=== PATIENT | male | born 1965 | race Caucasian/White ===

== ENCOUNTER 2021-06-30 08:23 | Outpatient (REF) | payer OTHER, SELFPAY ==
[2021-06-30 09:40] LABS: Binax Internal Control QC Valid; Binax Now Covid-19 Ag Negative (Negative)
[2021-06-30 09:41] LABS: Binax Lot number: 9864
== END 2021-06-30 08:24 | disposition home or self-care (01) ==
LOC: HO.LAB 08:23
PROVIDERS: Visit Provider Internal Medicine
DX: Z20.822 Contact with and (suspected) exposure to COVID-19 (principal)
CPT/HCPCS: C9803

== ENCOUNTER 2023-01-14 13:38 | Outpatient (AMB) | payer BC, SELFPAY ==
[2023-01-14 13:40] VITALS: BP 122/88; PULSE 60; O2SAT 99; BMI 27.1
--- NOTE | 2023-01-14 13:40 | A.OFFPC_ITS ---
Vital Signs 01/14/23 13:40 Height 5 ft 11 in Weight 194 lb BMI 27.1 BP 122/88 Blood Pressure Location Lt brachial Position Sitting Pulse 60 Pulse Source Pulse Oximeter Temp Source Skin Pulse Oximetry (%) 99 Oxygen Delivery Method Room Air Intake Visit Reasons: APPLICATION INTEGRATION ARCHITECT-Requesting Physical Exam Cost Recorder Required: No Allergies No Known Allergies Allergy (Verified 01/14/23 13:44) Medication List - Last Reconciled 01/14/23 by Pippa Parker MD multivitamin 1 tab PO DAILY Tobacco use date assessed: 01/14/23 Dental Screening Dental Screen Date: 01/14/23 Did you have a dental visit in the last 12 months?: Yes Did you have a dental problem in the last 6 months where you did not have access to dental care?: No Was dental information given to patient?: Patient has dentist HPI APPLICATION INTEGRATION ARCHITECT-Requesting Physical Exam HPI Details 57 year old overweight male seen for the 1st time. PFSH Surgical History (Updated 01/14/23 @ 13:58 by Pippa Parker MD) Finger amputation, no complication H/O right knee surgery Family History (Updated 01/14/23 @ 13:59 by Pippa Parker MD) Mother Uterine cancer Social History (Updated 01/14/23 @ 13:59 by Pippa Parker MD) Housing: House Alcohol intake: current Patient Tobacco Use Status: Never used Tobacco service: No Current occupational status: employed Cognitive needs: No Hearing needs: No Vision needs: No Questionnaire PHQ-9 Over the last 2 weeks, how often have you been bothered by any of the following problems? 1. Little interest or pleasure in doing things: not at all 2. Feeling down, depressed, or hopeless: not at all 3. Trouble falling or staying asleep, or sleeping too much: not at all 4. Feeling tired or having little energy: not at all 5. Poor appetite or overeating: not at all 6. Feeling bad about yourself - or that you are a failure or have let yourself or your family down: not at all 7. Trouble concentrating on things, such as reading the newspaper or watching television: not at all 8. Moving or speaking so slowly that other people could have noticed. Or the opposite - being so fidgety or restless that you have been moving around a lot more than usual: not at all 9. Thoughts that you would be better off or of hurting yourself in some way: not at all Total score: 0 Depression Screening Interpretation: Negative Source: Developed by Drs. Ellis Cobos, Doris Lainez, Vin García and colleagues, with an educational nisha from [employer]. Thrive Questionnaire Date Thrive assessed: 01/14/23 I am a: Patient What is your living situation today?: I have a steady place to live Within the past 12 months, did the food you bought not last and you didn't have the money to get more?: Never true Within the past 12 months, did you worry whether your food would run out before you got money to buy more?: Never true Do you have trouble paying for medicines?: No Do you have trouble getting transportation to medical appointments?: No Do you have trouble paying your heating and electricity bill?: No Do you have trouble taking care of your child, family member or friend?: No Do you have trouble with day-to-day activities such as bathing, preparing meals, shopping, managing finances, etc.?: No Are you currently unemployed and looking for a job?: No Are you interested in more education?: No AUDIT C Alcohol Use Questionnaire (AUDIT-C) 1. How often do you have a drink containing alcohol?: 2-3 times a week 2. How many drinks containing alcohol do you have on a typical day when you are drinking?: 1 or 2 3. How often do you have six or more drinks on one occasion?: Never Total Score: 3 GÉNESIS-7 AMB Questionnaire GÉNESIS-7 Date GÉNESIS - 7 assessed: 01/14/23 Feeling nervous, anxious, or on edge: 0 = Not at all Not being able to stop or control worryin = Not at all Worrying too much about different things: 0 = Not at all Trouble relaxin = Not at all Being so restless that it is hard to sit still: 0 = Not at all Becoming easily annoyed or irritable: 0 = Not at all Feeling afraid as if something awful might happen: 0 = Not at all Total GÉNESIS-7 score (0-4 normal; 5-9 mild; 10-14 moderate; 15-21 severe): 0 Source: Developed by Drs. Ellis Cobos, Doris Lainez, Vin García and colleagues, with an educational nisha from [employer]. Review of Systems Const Denies poor appetite and Denies weakness Eyes Denies no additional complaints ENT Reports Normal hearing present Card Denies chest pain, Denies syncope, Denies rapid heart rate and Denies dyspnea Resp Denies cough and Denies dyspnea GI Denies change in stool character, Reports constipation, Denies diarrhea, Denies nausea and Denies vomiting Denies dysuria and Denies urinary frequency Neuro Reports Normal hearing present, Denies confusion, Denies syncope and Denies weakness Psych Denies confusion Physical exam (Primary Care) Vital Signs: Last Vital Signs Pulse 60 01/14/23 13:40 BP 122/88 01/14/23 13:40 Pulse Ox 99 01/14/23 13:40 Oxygen Delivery Method Room Air 01/14/23 13:40 BMI result Body Mass Index 27.1 Tobacco/Smoking Status: Tobacco use Status Tobacco use date assessed 01/14/23 01/14/23 13:41 Patient Tobacco Use Status Never used Tobacco 01/14/23 13:41 PHQ-9: PHQ-9 Score PHQ-9: Total score 0 01/14/23 13:41 Depression Screening Interpretation: Negative Thrive Assessment: Date of Thrive Assessment Date Thrive assessed 01/14/23 01/14/23 13:41 Const General: alert and awake; No confusion Orientation/consciousness: No confusion HENMT Head: Yes normocephalic Ears: external ears normal and TM's normal bilaterally Face and sinus: Yes normal facial exam Mouth: moist mucous membranes Throat: Yes tonsils normal Eyes Conjunctivae: conjunctivae normal Pupils: Equal, round and reactive pupils present and Pupil accommodation reflex normal Direct Ophthalmoscopy: normal light reflex Neck Neck: No lymphadenopathy Thyroid: Thyroid normal Chest Chest palpation & inspection: normal inspection of the chest Resp Effort & Inspection: normal respiratory effort and no audible wheezes Auscultation: clear to auscultation bilaterally, no crackles, no wheezes and lung sounds not diminished Cardio Rate: regular rate Rhythm: regular rhythm Peripheral pulses: radial pulses present and dorsalis pedis present GI Other: stools negative for guaiac prostate normal Palpation (GI): no masses Auscultation: normal bowel sounds and normoactive bowel sounds Male General Exam: Yes normal external exam Back/Spine/Pelvis Other: left upper back 1 cm skin tag with the base of 5 mm Skin General skin exam: no rashes or lesions noted Rashes: no rashes Neuro General: deep tendon reflexes 2+ bilaterally and No confusion Cranial nerves: Yes Equal, round and reactive pupils present, Yes Midline tongue present, Yes Normal hearing present and Yes Ability to bilaterally elevate shoulders present Cognition (Neuro): normal cognition Gait exam (Neuro): Normal gait present Motor exam (neuro): 5/5 motor strength present throughout Deep tendon reflexes (DTR's): Right brachioradialis reflex intensity grade: 2+, Left brachioradialis reflex intensity grade: 2+, Right patellar reflex intensity grade: 2+ and Left patellar reflex intensity grade: 2+ Extrem General: No edema Assessment and Plan Assessment & Plan (1) Annual physical exam: Code(s): Z00.00 - Encounter for general adult medical examination without abnormal findings (2) Overweight (BMI 25.0-29.9): Code(s): E66.3 - Overweight Plan: diet and exercise (3) Colon cancer screening: Code(s): Z12.11 - Encounter for screening for malignant neoplasm of colon (4) Skin tag: Comment: Right upper back 1 cm polypoid Code(s): L91.8 - Other hypertrophic disorders of the skin (5) Erectile dysfunction: Code(s): N52.9 - Male erectile dysfunction, unspecified Orders: Orders Vitamin B12 and Folate Today E66.3 - Overweight Comprehensive Met. Panel Today E66.3 - Overweight Lipid Panel Today E66.3 - Overweight, E78.00 - Pure hypercholesterolemia, unspecified Prostate Specific Antigen Scr Today E66.3 - Overweight Free T4 (Free Thyroxine) Today E66.3 - Overweight Thyroid Stimulating Hormone Today E66.3 - Overweight Complete Blood Count Auto Diff Today E66.3 - Overweight Follicle Stimulating Hormone Today N52.9 - Male erectile dysfunction, unspecified Lutenizing Hormone Today N52.9 - Male erectile dysfunction, unspecified Prolactin Today N52.9 - Male erectile dysfunction, unspecified Testosterone, Total Today N52.9 - Male erectile dysfunction, unspecified Referrals Gastroenterology Referral Z12.11 - Encounter for screening for malignant neoplasm of colon Dermatology Referral L91.8 - Other hypertrophic disorders of the skin Medications: New sildenafil administer 30 minutes to 4 hours before activity 50 mg PO DAILY PRN 10 tabs 3RF sexual activity N52.9 - Male erectile dysfunction, unspecified Coding Level of Care Code New Pt Prev Care 40-64y(36336) Diagnoses Annual physical exam Z00.00 Overweight (BMI 25.0-29.9) E66.3 Colon cancer screening Z12.11 Skin tag L91.8 Erectile dysfunction N52.9
== END 2023-01-14 14:24 | disposition home or self-care (01) ==
PROVIDERS: PCP Family Medicine; Visit Provider Internal Medicine
DX: Z00.00 Encounter for general adult medical examination without abnormal findings (principal); E66.3 Overweight; Z12.11 Encounter for screening for malignant neoplasm of colon; L91.8 Other hypertrophic disorders of the skin; N52.9 Male erectile dysfunction, unspecified
CPT/HCPCS: 99386

== ENCOUNTER 2023-01-16 06:58 | Outpatient (REF) | payer BC, SELFPAY ==
[2023-01-16 07:11] LABS: MANUAL DIFF FLAG NO
[2023-01-16 08:14] LABS: Basophils Percent Auto 0.7 % (0-2); Eosinophils Absolute Auto 0.1 X10*3/uL (0.0-0.4); Hematocrit 42.9 % (42.0-52.0); Hemoglobin 14.2 g/dl (14.0-18.0); Imm Gran Abs Auto 0.01 X10*3/uL (0.00-0.03); Imm Gran Pct Auto 0.2 % (0.0-0.4); Lymphocytes Absolute Auto 1.4 X10*3/uL (1.2-4.9); Lymphocytes Percent Auto 31.1 % (20-40); Mean Corpuscular HGB Conc 33.1 g/dl (31.0-36.0); Mean Corpuscular Hemoglobin 28.2 pg (27.0-33.0); Mean Corpuscular Volume 85.1 fL (80.0-98.0); Mean Platelet Volume 11.6 fL (9.4-12.4); Monocytes Absolute Auto 0.4 X10*3/uL (0.1-1.2); Monocytes Percent Auto 9.2 % (2-11); Neutrophils Absolute Auto 2.5 x10*3/uL (2.0-8.3); Neutrophils Percent Auto 56.8 % (45-73); Platelet Count 171 X10*3/uL (160-400); Red Blood Count 5.04 X10*6/uL (4.60-5.80); Red Cell Distribution Width 13.5 % (11.0-16.0); White Blood Count 4.5 X10*3/uL (4.8-10.8)
[2023-01-16 08:49] LABS: Alanine Aminotransferase 23 U/L (0-40); Albumin Level 4.1 g/dL (3.5-5.0); Alkaline Phosphatase 58 U/L (39-117); Anion Gap 14 (12-20); Aspartate Amino Transferase 18 U/L (5-37); Bilirubin Total 0.8 mg/dL (0.0-1.0); Blood Urea Nitrogen 16 mg/dL (9-16); Calcium 9.3 mg/dL (8.4-10.2); Carbon Dioxide 26 mmol/L (22-29); Chloride 109 mmol/L (96-108); Cholesterol 195 mg/dL; Estimated Glomerular Filt Rate > 60; Glucose Random 95 mg/dL (60-115); HDL Cholesterol 47 mg/dL; LDL Cholesterol Calculated 131 mg/dl; Sodium 145 mmol/L (135-145); Total Protein 7.1 g/dL (6.5-8.0); Triglycerides 85 mg/dL
[2023-01-16 09:06] LABS: Free T4 (Free Thyroxine) 1.07 ng/dL (0.71-1.85); Thyroid Stimulating Hormone 1.65 uIU/mL (0.32-4.0)
[2023-01-16 09:25] LABS: Folate 12.5 ng/mL (> or = 4.0); Prostate Specific Antigen Scr 1.13 ng/mL (<0.05-4.0)
[2023-01-16 09:31] LABS: Vitamin B12 311 pg/mL (200-900)
[2023-01-18 01:23] LABS: Follicle Stimulating Hormone 9.5 mIU/mL (1.6-8.0); Lutenizing Hormone 3.6 mIU/mL (1.5-9.3); Prolactin 17.1 ng/mL (2.0-18.0)
[2023-01-22 10:18] LABS: Testosterone, Total 390 ng/dL (250-1100)
== END 2023-01-16 06:59 | disposition home or self-care (01) ==
LOC: HO.LAB 06:58
PROVIDERS: PCP Internal Medicine; Visit Provider Internal Medicine
DX: Z12.5 Encounter for screening for malignant neoplasm of prostate (principal); E66.3 Overweight; N52.9 Male erectile dysfunction, unspecified; E78.00 Pure hypercholesterolemia, unspecified
CPT/HCPCS: 36415; 80053; 80061; 82607; 82746; 83001; 83002; 84146; 84153; 84403; 84439; 84443; 85025

== ENCOUNTER 2023-04-25 12:52 | Outpatient (AMB) | payer BC, SELFPAY ==
[2023-04-25 12:58] VITALS: BP 128/68; PULSE 72; O2SAT 98; BMI 27.9
--- NOTE | 2023-04-25 12:58 | MHC.PC.OV ---
Vital Signs 04/25/23 12:58 Height 5 ft 11 in Weight 200 lb BMI 27.9 BP 128/68 Blood Pressure Location Lt brachial Position Sitting Pulse 72 Pulse Source Pulse Oximeter Pulse Oximetry (%) 98 Oxygen Delivery Method Room Air Intake Visit Reasons: 3 month f/u Allergies No Known Allergies Allergy (Verified 04/25/23 12:59) Medication List - Last Reconciled 04/25/23 by Pippa Parker MD multivitamin 1 tab PO DAILY sildenafil 100 mg PO DAILY PRN Tobacco use date assessed: 01/14/23 Dental Screening Dental Screen Date: 04/25/23 Did you have a dental visit in the last 12 months?: Yes Did you have a dental problem in the last 6 months where you did not have access to dental care?: No Was dental information given to patient?: Patient has dentist HPI 3 month f/u HPI Details 58-year-old overweight male with a history of erectile dysfunction last seen in December 2022. Patient is here for follow-up. Patient was referred to Gastroenterology but I do not see notes. Blood work done.wakes up with a headached , tired alot, withessed apnea sleeps on watching tv, occ sleepy after a meal , no nap time, , sleepy on long distance passenger, driving no problem PFSH Surgical History (Updated 01/14/23 @ 13:58 by Pippa Parker MD) H/O right knee surgery Finger amputation, no complication Family History (Updated 04/25/23 @ 13:00 by Halina Grant TIME CLERK) Mother Uterine cancer Social History (Updated 01/14/23 @ 13:59 by Pippa Parker MD) Housing: House Alcohol intake: current Patient Tobacco Use Status: Never used Tobacco e-Cigarette/Vaping Use: Never Used Second Hand Smoke Exposure: No service: No Current occupational status: employed Cognitive needs: No Hearing needs: No Vision needs: Yes Questionnaire PHQ-9 Over the last 2 weeks, how often have you been bothered by any of the following problems? 1. Little interest or pleasure in doing things: not at all 2. Feeling down, depressed, or hopeless: not at all 3. Trouble falling or staying asleep, or sleeping too much: not at all 4. Feeling tired or having little energy: not at all 5. Poor appetite or overeating: not at all 6. Feeling bad about yourself - or that you are a failure or have let yourself or your family down: not at all 7. Trouble concentrating on things, such as reading the newspaper or watching television: not at all 8. Moving or speaking so slowly that other people could have noticed. Or the opposite - being so fidgety or restless that you have been moving around a lot more than usual: not at all 9. Thoughts that you would be better off or of hurting yourself in some way: not at all Total score: 0 Depression Screening Interpretation: Negative Depression Screening Done: Yes Source: Developed by Drs. Ellis Cobos, Doris Lainez, Vin García and colleagues, with an educational nisha from [employer]. Thrive Questionnaire Date Thrive assessed: 01/14/23 AUDIT C Alcohol Use Questionnaire (AUDIT-C) 1. How often do you have a drink containing alcohol?: 2-3 times a week 2. How many drinks containing alcohol do you have on a typical day when you are drinking?: 1 or 2 3. How often do you have six or more drinks on one occasion?: Never Total Score: 3 GÉNESIS-7 AMB Questionnaire GÉNESIS-7 Date GÉNESIS - 7 assessed: 01/14/23 Source: Developed by Drs. Ellis Cobos, Doris Lainez, Vin García and colleagues, with an educational nisha from [employer]. Physical exam (Primary Care) Vital Signs: Last Vital Signs Pulse 72 04/25/23 12:58 BP 128/68 04/25/23 12:58 Pulse Ox 98 04/25/23 12:58 Oxygen Delivery Method Room Air 04/25/23 12:58 BMI result Body Mass Index 27.9 Tobacco/Smoking Status: Tobacco use Status Tobacco use date assessed 01/14/23 04/25/23 13:04 Patient Tobacco Use Status Never used Tobacco 04/25/23 13:04 e-Cigarette/Vaping Use Never Used 04/25/23 13:04 PHQ-9: PHQ-9 Score PHQ-9: Total score 0 04/25/23 13:04 Depression Screening Interpretation: Negative Thrive Assessment: Date of Thrive Assessment Date Thrive assessed 01/14/23 04/25/23 13:04 Const General: alert; No acute distress Eyes Conjunctivae: conjunctivae normal Resp Auscultation: clear to auscultation bilaterally Cardio Rate: regular rate Rhythm: regular rhythm GI Inspection: Yes normal to inspection Extrem General: Yes normal to inspection and No edema Assessment and Plan Assessment & Plan (1) Overweight (BMI 25.0-29.9): Code(s): E66.3 - Overweight Plan: Diet and exercise (2) Colon cancer screening: Code(s): Z12.11 - Encounter for screening for malignant neoplasm of colon Plan: Reminded about colon cancer screening (3) Erectile dysfunction: Code(s): N52.9 - Male erectile dysfunction, unspecified Plan: Continue with medication as needed (4) Hypercholesterolemia: Code(s): E78.00 - Pure hypercholesterolemia, unspecified Plan: Avoid fried foods, chicken skin, eggs, butter margarine, pastries and meat. Be it pork or beef they have a lot of cholesterol (5) Witnessed apneic spells: Code(s): R06.81 - Apnea, not elsewhere classified Orders: Orders RT home sleep study Today R06.81 - Apnea, not elsewhere classified Medications: Changed From sildenafil administer 30 minutes to 4 hours before activity 50 mg PO DAILY PRN 10 tabs 3RF sexual activity N52.9 - Male erectile dysfunction, unspecified To sildenafil administer 30 minutes to 4 hours before activity 100 mg PO DAILY PRN 14 tabs 3RF sexual activity N52.9 - Male erectile dysfunction, unspecified Coding Level of Care Code Est Pt Level 4 (56058) Diagnoses Overweight (BMI 25.0-29.9) E66.3 Colon cancer screening Z12.11 Erectile dysfunction N52.9 Hypercholesterolemia E78.00 Witnessed apneic spells R06.81
== END 2023-04-25 13:38 | disposition home or self-care (01) ==
PROVIDERS: PCP Family Medicine; Visit Provider Internal Medicine
DX: E66.3 Overweight (principal); Z12.11 Encounter for screening for malignant neoplasm of colon; N52.9 Male erectile dysfunction, unspecified; E78.00 Pure hypercholesterolemia, unspecified; R06.81 Apnea, not elsewhere classified
CPT/HCPCS: 99214

== ENCOUNTER 2023-06-06 09:28 | Outpatient (AMB) | payer BC, SELFPAY ==
--- NOTE | 2023-06-06 09:30 | MHC.OFFVIS ---
Intake Vital Signs 06/06/23 09:32 Height 5 ft 11 in Weight 196 lb 3.382 oz BMI 27.4 BP 139/77 Blood Pressure Location Lt brachial Position Sitting Pulse 82 Intake Visit Reasons: Colonoscopy Screening Intake Note: Milo presents in the office as a colonoscopy screening. CC: He states that he is not having any concerns. Construction Administrative Assistant Required: No Allergies No Known Allergies Allergy (Verified 06/06/23 09:32) Medication List - Last Reconciled 06/06/23 by Zarina Gunn PA-C multivitamin 1 tab PO DAILY sildenafil 100 mg PO DAILY PRN HPI HPI Comments History of Present Illness Details A 58 y/o male referred for index screening colonoscopy he has no GI complaints, he has no known family history of GI cancer He would like to discuss alternatives to the standard colonoscopy Appetite is good Bowels good No respiratory/ cardiac issue PFSH Surgical History H/O right knee surgery Finger amputation, no complication Family History Mother Uterine cancer Social History Housing: House Alcohol intake: current Patient Tobacco Use Status: Never used Tobacco e-Cigarette/Vaping Use: Never Used Second Hand Smoke Exposure: No service: No Current occupational status: employed Cognitive needs: No Hearing needs: No Vision needs: Yes Review of Systems Const Details: All systems reviewed and are negative All systems reviewed & are unremarkable except as noted in HPI and below Card Denies chest pain and Denies dyspnea Resp Denies dyspnea GI Denies abdominal pain, Denies heartburn, Denies diarrhea, Denies nausea and Denies vomiting Physical Exam Vital Signs: Last Vital Signs Pulse 82 06/06/23 09:32 BP 139/77 06/06/23 09:32 BMI result Body Mass Index 27.4 Const General: cooperative, healthy appearing, comfortable and no acute distress Orientation/consciousness: patient oriented x3 Limitations: no limitations Eyes Sclerae: sclerae normal Resp Effort & Inspection: normal respiratory effort and able to speak in complete sentences Auscultation: clear to auscultation bilaterally, no crackles, no rales and no rhonchi Cardio Rate: regular rate Rhythm: regular rhythm Heart sounds: S1 normal heart sound present and S2 normal heart sound present GI Palpation (GI): Soft to palpation and nontender Auscultation: normal bowel sounds Skin General skin exam: no rashes or lesions noted Neuro General: patient oriented x3 Extrem General: Yes full ROM Psych Appearance: grossly normal and well kempt Mental Status: mental status grossly normal Speech and movement: Normal speech and movement present Affect: normal affect Attitude: cooperative Thought process: Normal thought process present Thought content: Normal thought content present Assessment & Plan Assessment & Plan (1) Colon cancer screening: Comment: Discussed alternative standard colonoscopy Code(s): Z12.11 - Encounter for screening for malignant neoplasm of colon Plan: Cologuard Plan cologuard- if positive - colonoscopy Patient Instructions: Very pleasant 58-year-old Gent referred for index screening colonoscopy no GI general complaints. No family history of GI cancers. We discussed colonoscopy as well as alternatives to include Cologuard, approximately 13% follows positives as well as there are false negatives. He prefers to go forward with Cologuard, he is fully aware if this is positive we would recommend colonoscopy. We could schedule procedure without him coming back into the office. Authorization will be sent to his insurance, he will call us 2 weeks after submitting sample for results. She had he reconsider he may call let us know. Appreciate the opportunity assist in the care this cindy Aviles Coding Level of Care Code New Pt Level 3 (24431) Diagnoses Colon cancer screening Z12.11 Time Spent (min) 30
[2023-06-06 09:32] VITALS: BP 139/77; PULSE 82; BMI 27.4
== END 2023-06-06 12:25 | disposition home or self-care (01) ==
PROVIDERS: PCP Internal Medicine; Visit Provider Physician Assistant
DX: Z01.818 Encounter for other preprocedural examination (principal); Z12.11 Encounter for screening for malignant neoplasm of colon
CPT/HCPCS: S0285

== ENCOUNTER → 2023-06-06 09:28 | Outpatient (BNVA) | payer BC, SELFPAY | PROVIDERS: PCP Internal Medicine; Visit Provider Physician Assistant ==

== ENCOUNTER → 2023-09-25 15:27 | Outpatient (REF) | payer OTHER, SELFPAY | LOC: HO.SL 15:27 | PROVIDERS: PCP Internal Medicine; Visit Provider Internal Medicine | DX: G47.33 Obstructive sleep apnea (adult) (pediatric) (principal) | CPT/HCPCS: 95806 ==

== ENCOUNTER → 2023-09-25 15:50 | Outpatient (BNV) | payer OTHER, SELFPAY | PROVIDERS: PCP Internal Medicine; Visit Provider Internal Medicine | DX: G47.33 Obstructive sleep apnea (adult) (pediatric) (principal) | CPT/HCPCS: 95806 ==

== ENCOUNTER 2024-03-31 15:51 | Outpatient (AMB) | payer OTHER, SELFPAY ==
--- NOTE | 2024-03-31 15:56 | MHC.PC.OV ---
Vital Signs 03/31/24 15:57 03/31/24 16:35 Height 5 ft 11 in Weight 199 lb BMI 27.8 BP 140/88 H 140/88 H Blood Pressure Location Lt brachial Lt brachial Position Sitting Sitting Pulse 59 Pulse Source Pulse Oximeter Pulse Oximetry (%) 97 Oxygen Delivery Method Room Air Intake Visit Reasons: annual exam Intake Note: Patient is here today for a physical. Long Term Care Social Worker Required: No Allergies No Known Allergies Allergy (Verified 03/31/24 16:14) Medication List - Last Reconciled 03/31/24 by Rupinder Gan PA-C [AUTOPAP 6-20 cm H20 humidified AIR As directed] multivitamin 1 tab PO DAILY sildenafil 100 mg PO DAILY PRN Tobacco use date assessed: 03/31/24 Dental Screening Dental Screen Date: 03/31/24 Did you have a dental visit in the last 12 months?: Yes Did you have a dental problem in the last 6 months where you did not have access to dental care?: No Was dental information given to patient?: Patient has dentist HPI annual exam HPI Details 58-year-old overweight male with history of erectile dysfunction last seen April 2023 coming in for annual exam. In review of the notes, patient had home sleep study completed September 2023 found to have severe obstructive sleep apnea and recommend CPAP therapy. Patient states he is using the mask however it is difficult to use at night. He finds that he wakes up more while using the mask than without using the mass. He is up-to-date on all vaccinations. He had the Cologuard test mailed to his house last year however did not complete it. He has no other concerns today. [facility] Surgical History H/O right knee surgery Finger amputation, no complication Family History Mother Uterine cancer Social History Housing: House Alcohol intake: current Patient Tobacco Use Status: Never used Tobacco e-Cigarette/Vaping Use: Never Used Second Hand Smoke Exposure: No service: No Current occupational status: employed Cognitive needs: No Hearing needs: No Vision needs: Yes Questionnaire PHQ-9 Over the last 2 weeks, how often have you been bothered by any of the following problems? 1. Little interest or pleasure in doing things: not at all 2. Feeling down, depressed, or hopeless: not at all 3. Trouble falling or staying asleep, or sleeping too much: several days 4. Feeling tired or having little energy: several days 5. Poor appetite or overeating: not at all 6. Feeling bad about yourself - or that you are a failure or have let yourself or your family down: not at all 7. Trouble concentrating on things, such as reading the newspaper or watching television: not at all 8. Moving or speaking so slowly that other people could have noticed. Or the opposite - being so fidgety or restless that you have been moving around a lot more than usual: not at all 9. Thoughts that you would be better off or of hurting yourself in some way: not at all Total score: 2 Depression Screening Interpretation: Negative Depression Screening Done: Yes 18550 - PHQ-9 Billing: Yes Source: Developed by Drs. Ellis Cobos, Doris Lainez, Vin García and colleagues, with an educational nisha from [employer]. Thrive Questionnaire Date Thrive assessed: 03/30/24 I am a: Patient What is your living situation today?: I have a steady place to live Within the past 12 months, did the food you bought not last and you didn't have the money to get more?: Never true Within the past 12 months, did you worry whether your food would run out before you got money to buy more?: Never true Do you have trouble paying for medicines?: No Do you have trouble getting transportation to medical appointments?: No Do you have trouble paying your heating and electricity bill?: No Do you have trouble taking care of your child, family member or friend?: No Do you have trouble with day-to-day activities such as bathing, preparing meals, shopping, managing finances, etc.?: No Are you currently unemployed and looking for a job?: No Are you interested in more education?: No Please select the resources that you would like help with: None Currently or been in a relationship where the following occur: No concerns reported THRIVE Score: 0 AUDIT C Alcohol Use Questionnaire (AUDIT-C) 1. How often do you have a drink containing alcohol?: 2-4 times a month 2. How many drinks containing alcohol do you have on a typical day when you are drinking?: 1 or 2 3. How often do you have six or more drinks on one occasion?: Never Total Score: 2 GÉNESIS-7 AMB Questionnaire GÉNESIS-7 Date GÉNESIS - 7 assessed: 03/31/24 Feeling nervous, anxious, or on edge: 0 = Not at all Not being able to stop or control worryin = Not at all Worrying too much about different things: 0 = Not at all Trouble relaxin = Not at all Being so restless that it is hard to sit still: 0 = Not at all Becoming easily annoyed or irritable: 0 = Not at all Feeling afraid as if something awful might happen: 0 = Not at all Total GÉNESIS-7 score (0-4 normal; 5-9 mild; 10-14 moderate; 15-21 severe): 0 Source: Developed by Drs. Ellis Cobos, Doris Lainez, Vin García and colleagues, with an educational nisha from [employer]. Review of Systems Const Denies body aches, Denies fatigue, Denies fever(s), Denies frequent falls, Denies headache(s) and Denies weakness Eyes Reports no additional complaints and Denies change in vision ENT Denies dysphagia, Denies dizziness, Denies facial pain, Denies headache(s), Denies nasal congestion and Denies odynophagia Card Denies chest pain, Denies syncope, Denies irregular heart rhythm, Denies leg edema, Denies lightheadedness and Denies dyspnea Resp Denies cough and Denies dyspnea GI Denies constipation, Denies dysphagia, Denies dyspepsia, Denies diarrhea, Denies nausea, Denies odynophagia and Denies vomiting Denies dysuria, Denies urinary frequency, Denies urinary hesitancy and Denies urinary urgency Musc Denies back pain and Denies myalgias Skin/Breast Reports system reviewed and no additional complaints, except as documented Neuro Denies dizziness, Denies syncope, Denies frequent falls, Denies headache(s) and Denies weakness Psych Reports no additional complaints Endo Denies fatigue Physical exam (Primary Care) Vital Signs: Last Vital Signs Pulse 59 03/31/24 15:57 Pulse Ox 97 03/31/24 15:57 Oxygen Delivery Method Room Air 03/31/24 15:57 BMI result Body Mass Index 27.8 Tobacco/Smoking Status: Tobacco use Status Tobacco use date assessed 03/31/24 03/31/24 15:58 Patient Tobacco Use Status Never used Tobacco 03/31/24 15:57 e-Cigarette/Vaping Use Never Used 03/31/24 15:57 PHQ-9: PHQ-9 Score PHQ-9: Total score 2 03/31/24 16:07 Depression Screening Interpretation: Negative Thrive Assessment: Date of Thrive Assessment Date Thrive assessed 03/30/24 03/31/24 15:57 Currently or been in a relationship where the following occur: No concerns reported Const General: cooperative, healthy appearing, comfortable and no acute distress Orientation/consciousness: patient oriented x3 HENMT Head: Yes normocephalic Ears: hearing grossly normal bilaterally, external ears normal, TM's normal bilaterally and EAC's normal General nose exam: Normal external nose present Face and sinus: Yes normal facial exam and Yes sinuses nontender Mouth: Normal oral and palatal mucosa present and tongue normal Throat: Yes posterior oropharynx normal Eyes General: appearance normal, both eyes and all related structures Conjunctivae: conjunctivae normal Pupils: Equal, round and reactive pupils present EOM: EOMs intact bilaterally and No Nystagmus present Neck Neck: Yes normal visual inspection, Yes full ROM and Yes no lymphadenopathy Chest Chest palpation & inspection: normal inspection of the chest Resp Effort & Inspection: normal respiratory effort Auscultation: clear to auscultation bilaterally, no crackles, no rales, no rhonchi, no wheezes and breath sounds present Cardio Rate: regular rate Rhythm: regular rhythm Peripheral pulses: radial pulses present and dorsalis pedis present GI Inspection: Yes normal to inspection and No Abdominal wall edema Palpation (GI): Soft to palpation, not firm and nontender Auscultation: normal bowel sounds Rectal Exam - Male: Yes deferred General: Yes no CVA tenderness Back/Spine/Pelvis Back: no CVA tenderness Skin General skin exam: no rashes or lesions noted Neuro General: patient oriented x3 Cranial nerves: Yes Equal, round and reactive pupils present, Yes Midline tongue present, Yes Ability to bilaterally elevate shoulders present and No Nystagmus present Gait exam (Neuro): Normal gait present Extrem General: Yes normal to inspection, Yes full ROM, No no pedal edema and No edema Psych Speech and movement: Normal speech and movement present Affect: normal affect Insight: Good insight present (Psych) Judgement: Good judgement present (Psych) Coding Level of Care Code Est Pt Prev Care 40-64y(07251) Diagnoses Severe obstructive sleep apnea G47.33 Hypercholesterolemia E78.00 Erectile dysfunction N52.9 Colon cancer screening Z12.11 Overweight (BMI 25.0-29.9) E66.3 Annual physical exam Z00.00 Assessment & Plan Assessment & Plan (1) Severe obstructive sleep apnea: Comment: Sleep study done 09/25/2023 showing severe obstructive sleep apnea with an AHI of 34 consider CPAP therapy auto PAP mode and pressure settings of 6-20 cm Code(s): G47.33 - Obstructive sleep apnea (adult) (pediatric) Category: Medical Plan: Uses CPAP faithfully at least 4 hours a night and benefits from this therapy. He does mentioned the mask is difficult for him to wear although he does wear it. He is requesting referral to Ear Nose and Throat for deviated septum and evaluation for possible surgery. Referral placed today. (2) Hypercholesterolemia: Code(s): E78.00 - Pure hypercholesterolemia, unspecified Category: Medical Plan: Avoid foods that are high in cholesterol such as red meat, fried foods, eggs and baked goods. Triglyceride goal of less than 150 and LDL goal of less than 130. Not currently on medical management. (3) Erectile dysfunction: Code(s): N52.9 - Male erectile dysfunction, unspecified Category: Medical Plan: Patient states the sildenafil has been working well for him but he does have occasions where it does not work. He is requesting to try the name brand Viagra which was sent to pharmacy. Discussed with patient this medication may not be covered by his insurance and offered alternative however this was declined. Follow up as needed. (4) Colon cancer screening: Comment: Discussed alternative standard colonoscopy Code(s): Z12.11 - Encounter for screening for malignant neoplasm of colon Category: Medical Plan: Referral placed for Cologuard testing. (5) Overweight (BMI 25.0-29.9): Code(s): E66.3 - Overweight Category: Medical Plan: Healthy diet and regular exercise is encouraged. (6) Annual physical exam: Code(s): Z00.00 - Encounter for general adult medical examination without abnormal findings Category: Medical Plan: Patient is up-to-date on all recommended vaccinations for his age. Referral placed for Cologuard testing and otherwise up-to-date with routine screening for his age. Updated blood work ordered. Follow up in 1 year or sooner pending blood work or if new problems arise. Plan This note was constructed using voice recognition software. While every effort has been made to ensure accuracy and web merchandiser, still areas may have been included sometimes these areas may affect the content or meeting of the given symptoms. Total time spent caring for the patient today was thirty minutes. This includes time spent before the visit reviewing the chart, time spent during the visit, and time spent after the visit and documentation. Orders: Orders Comprehensive Met. Panel Today Z00.00 - Encounter for general adult medical examination without abnormal findings Hemoglobin A1c Today Z00.00 - Encounter for general adult medical examination without abnormal findings TSH reflex Free T4 Today Z00.00 - Encounter for general adult medical examination without abnormal findings Vitamin B12 and Folate Today Z00.00 - Encounter for general adult medical examination without abnormal findings Complete Blood Count Auto Diff Today Z00.00 - Encounter for general adult medical examination without abnormal findings Free T4 (Free Thyroxine) Today Z00.00 - Encounter for general adult medical examination without abnormal findings Lipid Panel Today Z00.00 - Encounter for general adult medical examination without abnormal findings Vitamin D 25-OH (D2 and D3) Today Z00.00 - Encounter for general adult medical examination without abnormal findings PSA, Ultra Sensitive Today Z00.00 - Encounter for general adult medical examination without abnormal findings Referrals Cologuard Test Z12.11 - Encounter for screening for malignant neoplasm of colon, Z12.12 - Encounter for screening for malignant neoplasm of rectum Ear/Nose/Throat Referral G47.33 - Obstructive sleep apnea (adult) (pediatric), J34.2 - Deviated nasal septum Medications: New sildenafil (Viagra) administer 30 minutes to 4 hours before activity 100 mg PO DAILY PRN 14 tabs 0RF sexual activity On Hold sildenafil Hold Comment: Doctor's Order 100 mg PO DAILY PRN 14 tabs 3RF sexual activity N52.9 - Male erectile dysfunction, unspecified
[2024-03-31 15:57] VITALS: BP 140/88; PULSE 59; O2SAT 97; BMI 27.8
[2024-03-31 16:35] VITALS: BP 140/88
== END 2024-03-31 16:38 | disposition home or self-care (01) ==
PROVIDERS: PCP Internal Medicine
DX: G47.33 Obstructive sleep apnea (adult) (pediatric) (principal); E78.00 Pure hypercholesterolemia, unspecified; N52.9 Male erectile dysfunction, unspecified; Z12.11 Encounter for screening for malignant neoplasm of colon; E66.3 Overweight; Z00.00 Encounter for general adult medical examination without abnormal findings

== ENCOUNTER → 2024-03-31 15:51 | Outpatient (BNVA) | payer OTHER, SELFPAY | PROVIDERS: PCP Internal Medicine ==

== ENCOUNTER 2024-04-10 07:43 | Outpatient (REF) | payer OTHER, SELFPAY ==
[2024-04-10 08:02] LABS: MANUAL DIFF FLAG NO
[2024-04-10 08:20] LABS: Basophils Percent Auto 0.8 % (0-2); Eosinophils Absolute Auto 0.1 X10*3/uL (0.0-0.4); Eosinophils Percent Auto 2.7 % (0-4); Hematocrit 40.1 % (42.0-52.0); Hemoglobin 14.2 g/dl (14.0-18.0); Imm Gran Abs Auto 0.01 X10*3/uL (0.00-0.03); Imm Gran Pct Auto 0.3 % (0.0-0.4); Lymphocytes Absolute Auto 1.4 X10*3/uL (1.2-4.9); Lymphocytes Percent Auto 36.2 % (20-40); Mean Corpuscular HGB Conc 35.4 g/dl (31.0-36.0); Mean Platelet Volume 11.5 fL (9.4-12.4); Monocytes Absolute Auto 0.3 X10*3/uL (0.1-1.2); Platelet Count 169 X10*3/uL (160-400); Red Blood Count 4.89 X10*6/uL (4.60-5.80); Red Cell Distribution Width 13.9 % (11.0-16.0); White Blood Count 3.7 X10*3/uL (4.8-10.8)
[2024-04-10 08:31] LABS: Estimated Average Glucose 97 mg/dL; Hemoglobin A1C 110.3583 umol/L; Total Hemoglobin (HGBA1C) 3548.6741 umol/L
[2024-04-10 09:21] LABS: Alanine Aminotransferase 25 U/L (0-40); Alkaline Phosphatase 58 U/L (39-117); Anion Gap 11 (12-20); Aspartate Amino Transferase 22 U/L (5-37); Bilirubin Total 0.8 mg/dL (0.0-1.0); Blood Urea Nitrogen 12 mg/dL (9-16); Calcium 9.3 mg/dL (8.4-10.2); Carbon Dioxide 28 mmol/L (22-29); Chloride 107 mmol/L (96-108); Cholesterol 192 mg/dL (<200); Estimated Glomerular Filt Rate > 60; Glucose Random 97 mg/dL (60-115); HDL Cholesterol 44 mg/dL (>40); LDL Cholesterol Calculated 129 mg/dL (<100); Potassium 3.7 mmol/L (3.3-5.1); Sodium 142 mmol/L (135-145); Total Protein 6.8 g/dL (6.5-8.0); Triglycerides 95 mg/dL (<150)
[2024-04-10 09:23] LABS: Free T4 (Free Thyroxine) 0.95 ng/dL (0.71-1.85); TSH reflex Free T4 1.82 uIU/mL (0.32-4.0)
[2024-04-10 09:29] LABS: Vitamin B12 328 pg/mL (200-900)
[2024-04-16 15:08] LABS: Vitamin D 25-OH, D2 <4 ng/mL; Vitamin D 25-OH, D3 23 ng/mL; Vitamin D 25-OH, Total 23 ng/mL (30-100)
[2024-04-17 01:03] LABS: PSA, Ultra Sensitive 1.31 ng/mL
== END 2024-04-10 07:44 | disposition home or self-care (01) ==
LOC: HO.LAB 07:43
PROVIDERS: PCP Internal Medicine
DX: Z00.00 Encounter for general adult medical examination without abnormal findings (principal); Z12.5 Encounter for screening for malignant neoplasm of prostate; Z13.1 Encounter for screening for diabetes mellitus; Z13.89 Encounter for screening for other disorder
CPT/HCPCS: 36415; 80053; 80061; 82306; 82607; 82746; 83036; 84153; 84439; 84443; 85025

== ENCOUNTER 2024-10-19 09:25 | Outpatient (AMB) | payer OTHER, SELFPAY ==
[2024-10-19 09:28] VITALS: BP 128/82; PULSE 101; TEMP 37.1; O2SAT 97; BMI 27.6
--- NOTE | 2024-10-19 09:28 | MHC.PC.OV ---
Vital Signs 10/19/24 09:28 Height 5 ft 11 in Weight 198 lb BMI 27.6 BP 128/82 Blood Pressure Location Lt brachial Position Sitting Pulse 101 H Pulse Source Pulse Oximeter Temp 98.8 F Temp Source Oral Pulse Oximetry (%) 97 Oxygen Delivery Method Room Air Intake Visit Reasons: breathing issues Allergies No Known Allergies Allergy (Verified 10/19/24 09:29) Medication List - Last Reconciled 10/19/24 by Pippa Parker MD [AUTOPAP 6-20 cm H20 humidified AIR As directed] cholecalciferol (vitamin D3) 25 mcg PO DAILY multivitamin 1 tab PO DAILY tadalafil 20 mg PO Q OTHER DAY PRN Tobacco use date assessed: 10/19/24 Dental Screening Dental Screen Date: 10/19/24 Did you have a dental visit in the last 12 months?: No Did you have a dental problem in the last 6 months where you did not have access to dental care?: No Was dental information given to patient?: Patient has dentist HPI breathing issues HPI Details cough 1 week no fevers negative covid test , had sore throat, nasal congestion chest tightness, nobody sick at home [employer] Surgical History H/O right knee surgery Finger amputation, no complication Family History Mother Uterine cancer Social History Housing: House Alcohol intake: current Patient Tobacco Use Status: Never used Tobacco Tobacco use type: Cigarette e-Cigarette/Vaping Use: Never Used Second Hand Smoke Exposure: No service: No Current occupational status: employed Cognitive needs: No Hearing needs: No Vision needs: Yes Questionnaire PHQ-9 Over the last 2 weeks, how often have you been bothered by any of the following problems? 1. Little interest or pleasure in doing things: nearly every day 2. Feeling down, depressed, or hopeless: not at all 3. Trouble falling or staying asleep, or sleeping too much: several days 4. Feeling tired or having little energy: more than half the days 5. Poor appetite or overeating: several days 6. Feeling bad about yourself - or that you are a failure or have let yourself or your family down: not at all 7. Trouble concentrating on things, such as reading the newspaper or watching television: several days 8. Moving or speaking so slowly that other people could have noticed. Or the opposite - being so fidgety or restless that you have been moving around a lot more than usual: not at all 9. Thoughts that you would be better off or of hurting yourself in some way: not at all Total score: 8 Depression Screening Interpretation: Positive Depression Screening Done: Yes Source: Developed by Drs. Ellis Cobos, Doris Lainez, Vin García and colleagues, with an educational nisha from [employer]. Thrive Questionnaire Date Thrive assessed: 10/19/24 I am a: Patient What is your living situation today?: I have a steady place to live Within the past 12 months, did the food you bought not last and you didn't have the money to get more?: Never true Within the past 12 months, did you worry whether your food would run out before you got money to buy more?: Never true Do you have trouble paying for medicines?: No Do you have trouble getting transportation to medical appointments?: No Do you have trouble paying your heating and electricity bill?: No Do you have trouble taking care of your child, family member or friend?: No Do you have trouble with day-to-day activities such as bathing, preparing meals, shopping, managing finances, etc.?: No Are you currently unemployed and looking for a job?: No Are you interested in more education?: No Please select the resources that you would like help with: None Currently or been in a relationship where the following occur: I choose not to answer THRIVE Score: 0 AUDIT C Alcohol Use Questionnaire (AUDIT-C) 1. How often do you have a drink containing alcohol?: 2-4 times a month 2. How many drinks containing alcohol do you have on a typical day when you are drinking?: 1 or 2 3. How often do you have six or more drinks on one occasion?: Never Total Score: 2 GÉNESIS-7 AMB Questionnaire GÉNESIS-7 Date GÉNESIS - 7 assessed: 10/19/24 Feeling nervous, anxious, or on edge: 0 = Not at all Not being able to stop or control worryin = Not at all Worrying too much about different things: 0 = Not at all Trouble relaxin = Not at all Being so restless that it is hard to sit still: 0 = Not at all Becoming easily annoyed or irritable: 0 = Not at all Feeling afraid as if something awful might happen: 0 = Not at all Total GÉNESIS-7 score (0-4 normal; 5-9 mild; 10-14 moderate; 15-21 severe): 0 Source: Developed by Drs. Ellis Cobos, Doris Lainez, Vin García and colleagues, with an educational nisha from [employer]. Physical exam (Primary Care) Vital Signs: Last Vital Signs Temp 98.8 F 10/19/24 09:28 Pulse 101 H 10/19/24 09:28 BP 128/82 10/19/24 09:28 Pulse Ox 97 10/19/24 09:28 Oxygen Delivery Method Room Air 10/19/24 09:28 BMI result Body Mass Index 27.6 Tobacco/Smoking Status: Tobacco use Status Tobacco use date assessed 10/19/24 10/19/24 09:29 Patient Tobacco Use Status Never used Tobacco 10/19/24 09:29 Tobacco use type Cigarette 10/19/24 09:29 e-Cigarette/Vaping Use Never Used 10/19/24 09:29 PHQ-9: PHQ-9 Score PHQ-9: Total score 8 10/19/24 09:43 Depression Screening Interpretation: Positive Thrive Assessment: Date of Thrive Assessment Date Thrive assessed 10/19/24 10/19/24 09:33 Currently or been in a relationship where the following occur: I choose not to answer Const General: alert; No acute distress HENMT Other: Posterior pharyngeal wall mild redness Eyes Conjunctivae: conjunctivae normal Resp Other: Occasional wheezing and rhonchi no crackles noted Cardio Rate: regular rate Rhythm: regular rhythm GI Inspection: Yes normal to inspection Extrem General: Yes normal to inspection and No edema Coding Level of Care Code Est Pt Level 4 (94635) Diagnoses Severe obstructive sleep apnea G47.33 Overweight (BMI 25.0-29.9) E66.3 Acute bronchitis J20.9 Colon cancer screening Z12.11 Assessment & Plan Assessment & Plan (1) Severe obstructive sleep apnea: Comment: Sleep study done 09/25/2023 showing severe obstructive sleep apnea with an AHI of 34 consider CPAP therapy auto PAP mode and pressure settings of 6-20 cm Code(s): G47.33 - Obstructive sleep apnea (adult) (pediatric) Category: Medical Plan: Continue the with the CPAP more than 4 hours a night and benefits from the CPAP. Discussed with the patient the problem of sleep apnea and cardiac effects. Would recommend referral to sleep Medicine for further management. (2) Overweight (BMI 25.0-29.9): Code(s): E66.3 - Overweight Category: Medical Plan: Diet and exercise (3) Acute bronchitis: Code(s): J20.9 - Acute bronchitis, unspecified Category: Medical Plan: For the sore throat can take Cepacol lozenges, discussed about Delsym to help with dry cough so she can rest and advised to increase oral fluids. Patient also can take Tylenol for chills and fever. (4) Colon cancer screening: Comment: Discussed alternative standard colonoscopy Code(s): Z12.11 - Encounter for screening for malignant neoplasm of colon Category: Medical Plan: Recommended Cologuard testing again Plan History of Present Illness The patient is a 59-year-old male presenting with an acute cough persisting for over a week. He denies fever, and multiple COVID tests have returned negative results. The patient describes a sore throat that lasted for two days last week and reports minor congestion. Sleep is disturbed due to the cough, particularly at night, though he experiences minimal phlegm production. His past medical history includes severe obstructive sleep apnea, managed with CPAP therapy. He finds CPAP challenging to use but reports adherence of more than 4 hours nightly, which has facilitated improved exercise tolerance. Studies have identified 34 apnea episodes per hour. Relevant history also includes hypercholesterolemia and a noted low vitamin D level from blood work conducted in March. Health Maintenance - Continued use of CPAP for obstructive sleep apnea. - Vitamin D supplementation due to deficiency observed in March blood work. - Referral to a sleep specialist to explore potential alternatives, such as Inspire therapy, due to intolerance of CPAP. - Encouragement of weight loss to decrease the severity of obstructive sleep apnea. Social History - Sleep disruption due to chronic obstructive sleep apnea. - Exercise tolerance improved with CPAP use. - Adherence issues with CPAP therapy due to discomfort. Review of Systems - Respiratory: Reports a cough for over a week and intermittent wheezing; denies fever or continued sore throat. - ENT: Reports brief sore throat previously; denies ear pain. - General: Denies fever; reports negative COVID tests. Physical Exam - Respiratory- No crackles auscultated. Results - Labs: Normal blood count with mild leukopenia, normal electrolytes, renal function, blood sugar, and liver function; low vitamin D. - Tests: COVID tests were negative. Plan I have prescribed Zithromax for the bacterial bronchitis to target potential bacterial pathogens and an inhaler to open the airway and reduce bronchial constriction. An additional medication was provided to suppress nighttime coughs to enhance sleep quality. The use of a CPAP machine for his sleep apnea was reaffirmed, despite user discomfort, with a referral to the sleep specialist to evaluate alternative options such as Inspire therapy. To address vitamin D deficiency, supplementation should be continued, and its efficacy evaluated in future labs. Continual emphasis was placed on losing weight to potentially alleviate the severe obstructive sleep apnea by reducing airway obstruction. Patient was informed and verbally consented to the use of an ambient scribe for clinic note documentation during this visit. Discussion Notes During the visit, I discussed with the patient the likely bacterial nature of the bronchitis, given the intermittent productive cough and recent symptomatology. I provided a treatment plan including Zithromax, the use of an inhaler, and a nighttime cough suppressant to manage symptoms and improve sleep. The risks and benefits of using an inhaler and the medication regimens were reviewed, with demonstrations provided for correct inhaler techniques. I also addressed concerns regarding sleep apnea management, suggesting a sleep specialist referral to explore feasible CPAP alternatives, such as Inspire therapy, while emphasizing weight reduction as a potentially beneficial factor in symptom management. Patient Instructions - Begin taking Zithromax as prescribed: two tablets on the first day, followed by one tablet daily for four days. - Use the inhaler up to three times a day as needed for coughing spells. - Use the nighttime cough suppressant to alleviate sleep disturbances. - Continue using CPAP for at least 4 hours per night. - Maintain adequate hydration by drinking six to eight glasses of water daily. - Follow up with a sleep specialist to discuss alternative treatment for sleep apnea. - Engage in a weight reduction program to assist in managing sleep apnea. - Ensure regular follow-up for vitamin D levels and supplement intake. Orders: Referrals Sleep Medicine Referral G47.33 - Obstructive sleep apnea (adult) (pediatric) Cologuard Test Z12.11 - Encounter for screening for malignant neoplasm of colon Medications: New azithromycin (Zithromax) For 250 mg dose pack: take 500 mg today (day 1), then 250 mg for 4 days (days 2-5) PO 6 tabs 0RF J20.9 - Acute bronchitis, unspecified albuterol sulfate 90 mcg/actuation 2 puffs inhalation Q4-6H PRN 8.5 grams 0RF Shortness Of Breath J20.9 - Acute bronchitis, unspecified, J45.909 - Unspecified asthma, uncomplicated benzonatate 200 mg PO BID PRN 20 caps 0RF cough J20.9 - Acute bronchitis, unspecified
--- OUTSIDE RECORDS SUMMARY | 2024-10-19 10:12 | XMS_ITS | Data Portability ---
Author Organization [facility] [id number] Address [address] [place] [address] Assessment No assessment recorded. Plan of Treatment Reminders Order Date Submit Date Provider Last Modified By Organization Details Last Modified Time Details Appointments None recorded. Lab None recorded. Referral None recorded. Procedures None recorded. Surgeries None recorded. Imaging None recorded. Medication Orders cyclobenzap rine 10 mg tablet 2022 023 [facility] #[id number], [address] [place], [address], 3 16:24:46 naproxen 500 mg tablet 2022 023 [facility] #[id number], [address] [place], [address], 3 16:24:46 Patient TargetsNo targets recorded. Patient Instructions Encounter Date Encounter Id Patient Instructions Last Modified By Organization Details Last Modified Time 07/09/2022 [id number] getting back to normal after low back pain: care instructions [email or web address] Not available 07/09/2022 16:24:44 Drink lots of fluids. Take medications as prescribed. Do not do any activities that exacerbate your pain. Take walks and change positions frequently. Do not lie in bed all day. Light movement is helpful for recovery of the back. Use a heating pad or warm compress on the painful area of the back. A lidocaine patch can be used for topical relief. This is available over the counter. Once pain is improved, do back exercises to stretch and strengthen the back. If you develop severe pain, fevers/chills, weakness of limbs, loss of sensation in groin, or loss of control of bowel or bladder functions call 911 or go to the Emergency Department. [email or web address] Not available 07/09/2022 16:24:43 Reason for Referral None Reported. Problems No Known Problems Medical Equipment None Reported. Medications Name Sig Start Date Stop Date Status Note LastModified by Organization Details LastModified Time cyclobenzaprine 10 mg tablet Take 1 tablet every day by oral route at bedtime for 20 days. 2022 active Not Available Not Available Not Avai lable naproxen 500 mg tablet Take 1 tablet twice a day by oral route with meals for 10 days. 2022 active Not Available Not Available Not Avai lable Vitals Date Recorded Body height Body mass index (BMI) Body weight Oxygen saturation Oxygen saturation in Arterial blood by Pulse oximetry Pain severity - 0-10 verbal numeric rating [Score] - Reported Heart rate Respiratory rate Body temperature Systolic blood pressure Diastolic blood pressure Provider Name and Address Organization Details Last Updated DateTime 180.34 cm 25.8 kg/m2 74183.5 9 g 99 % 99 % 3 65 /min 20 /min 98.4 [degF] 148 mm[Hg] 88 mm[Hg] Yvrose Riojas PA [facility] 14:50:46 Social History Question Answer Notes LastModified by Organizat ion Details LastModified Time Tobacco Smoking Status Never Smoker Yvrose hughes PA [facility] 07/09/2022 14:49:03 What Is Your Level Of Alcohol Consumption? None Information not available 07/09/2022 Have You Had Direct Contact, Or Contact During Intimacy, With Monkeypox Rash, Scabs, Or Body Fluids From A Person With Monkeypox? No Information not available 07/09/2022 Do You Use Any Illicit Or Recreational Drugs? No Information not available 07/09/2022 Have You Recently Traveled Abroad? No Information not available 07/09/2022 Do You Or Have You Ever Used Any Other Forms Of Tobacco Or Nicotine? No Information not available 07/09/2022 Sex: Unknown Functional Status None recorded. Mental Status None recorded. Family History Relationship Description Onset Age of this Age Resolved Age Notes LastModified by Organization Details LastModified Time Father No current problems or disability Not available 07/09 14:48:57 Mother No current problems or disability Not available 07/09 14:48:57 Medical History No medical history recorded. Past Encounters Encounter ID Performer Location Encounter Start Date Encounter Closed Date Diagnosis/Indication Diagnosis SNOMED-CT Code Diagnosis ICD10 Code Diagnosis [place] [id number] [place] [address] [address] 07/09/2022 13:20:02 07/09/2022 16:28:41 Acute low back pain 728966767 M54.50 Health Concerns Section Related Observation LastModified by Organization Detai ls LastModified Time None Recorded Concern Status LastModified by Organization Details LastModified Time None Recorded Advance Directives Directive None Recorded Payers Encounter Date Sequence Insurance Name Policy Number Policy Weaver Covered Member ID Weaver Member ID Guarantor Name 07/09/2022 1 [facility] [id number] Milo A Misiaszek [id number] Milo A Misiaszek Notes Date Note Type Note Provider Name and Address Organization Details Recorded Time 3 text/html Back Pain/Injury UCReported bypatient.source of patient informationInformation obtained from patient; Patient arrived at Urgent Care ambulatory; learning styles: visual Location:lower back; pain is not radiating Quality:sharp;muscle spasms Severity:pain level 6/10 Duration:5 days Context:lifting Alleviating Factors:lying down Aggravating Factors:movement/positionin g;sitting;standing;walking Previous InjuryNo prior injury to affected body part Prior Imaging:none Nikita Hector NP [facility] [place], [address], [place] - [facility] 07/09/2022 16:25:09
== END 2024-10-19 09:54 | disposition home or self-care (01) ==
PROVIDERS: PCP Internal Medicine; Visit Provider Internal Medicine
DX: G47.33 Obstructive sleep apnea (adult) (pediatric) (principal); E66.3 Overweight; J20.9 Acute bronchitis, unspecified; Z12.11 Encounter for screening for malignant neoplasm of colon

== ENCOUNTER → 2024-10-19 09:25 | Outpatient (BNVA) | payer OTHER, SELFPAY | PROVIDERS: PCP Internal Medicine; Visit Provider Internal Medicine | DX: Z13.89 Encounter for screening for other disorder (principal) ==